=== PATIENT | male | born 1975 | race Caucasian/White ===

== ENCOUNTER 2016-12-21 22:40 | Emergency (ER) | payer OTHER ==
[2016-12-21 22:49] VITALS: RESP 16; TEMP 97.9
[2016-12-21] MEDS ORDERED: TDAP ADULT 0.5 ML INJ (BOOSTRIX) IM ONE (22:49)
--- NOTE | 2016-12-21 23:30 | EDPHY ---
H & P Time Seen by Provider: 12/21/16 22:55 HPI/ROS: CC: right forearm laceration HPI: This 41-year-old male presents to the emergency department today with a laceration to his right forearm which he sustained approximately one and a half hours prior to arrival. She states he was on a cycle roller and fell off cutting his arm on a nearby metal table. He states there is no chance there is a foreign body in the wound. He does not have decreased sensation or motor. The bleeding is well controlled. Pain 3/10. He does not have any other injuries. His tetanus status is not up-to-date. REVIEW OF SYSTEMS: Constitutional: No fever. Eyes: No discharge. Respiratory: No cough, no shortness of breath. Cardiac: No chest pain. Gastrointestinal: No abdominal pain, no vomiting. Musculoskeletal: No back pain. Skin: No rashes. Neurological: No headache. Past Medical/Surgical History: Past medical history includes hypertension exacerbated by anxiety Past surgical history includes hand surgery and adenoidectomy Family history is negative No known drug allergies Meds: Not routinely taking his antihypertensive Social History: The patient denies tobacco use. He drinks alcohol a few times a week. Occasional marijuana. Smoking Status: Never smoked Physical Exam: General Appearance: Alert and no distress. Eyes: Pupils equal and round no injection. Respiratory: Non-labored. Cardiac: Normal peripheral perfusion. Gastrointestinal: Non-distended. Musculoskeletal: Neck is supple, no JVD. Extremities have full range of motion. There is a 4 cm laceration through the dermis on the right distal lateral forearm. Skin: No rashes or lesions. DIFFERENTIAL DIAGNOSIS: After history and physical exam differential diagnosis was considered for right forearm laceration, mechanical fall. Constitutional: Initial Vital Signs Temperature (C) 97.9 F 12/21/16 22:47 Heart Rate 78 12/21/16 22:47 Respiratory Rate 16 12/21/16 22:47 Blood Pressure 183/99 H 12/21/16 22:47 O2 Sat (%) 98 12/21/16 22:47 O2 Delivery Mode Room Air Allergies/Adverse Reactions: No Known Allergies Allergy (Verified 12/21/16 22:46) Home Medications: Medication Instructions Recorded Lisinopril 12/21/16 Medical Decision Making Procedures: Procedure: Laceration repair. Verbal consent was obtained from the patient. The 4 cm laceration on the right forearm was anesthetized in the usual fashion by local anesthesia with 5 ml of 1% lidocaine with epinephrine . The wound was irrigated by the [employer] solutions architectJonny schwab, and re-cleansed by me, draped and explored to its base with a gloved finger. There were no deep structures involved. No tendon injury was identified. There was no foreign body. No debridement was necessary. The wound was repaired with #7 4.0 Prolene simple interrupted sutures. The wound repair was good and the patient tolerated the procedure well . The procedure was performed by myself. Antibiotic ointment and a sterile dressing was placed by the Jonny Rodriguez. Total Time: 15min ED Course/Re-evaluation: 41-year-old male with right forearm laceration. The wound was repaired with 7 simple interrupted sutures. Please refer to the procedure note. Patient tolerated procedure well. No antibiotics were prescribed. Wound care instructions were reviewed with the patient by both myself and nursing staff. All questions answered. Suture removal in 7-10 days or recheck sooner if any signs of infection as discussed. The patient's elevated blood pressure was also addressed and he was advised to take his prescribed medications as directed and follow up with his primary care provider. - Data Points Medications Given: Discontinued Medications Diphtheria/Tetanus/Acell Pertussis (Boostrix) 0.5 ml IM .ONCE ONE Stop: 12/21/16 22:50 Last Admin: 12/21/16 22:56 Dose: 0.5 ml Departure - Departure Disposition: Home, Routine, Self-Care Clinical Impression: Laceration of right forearm without complication Qualifiers: Encounter type: initial encounter Qualified Code(s): S51.811A - Laceration without foreign body of right forearm, initial encounter Condition: Good Instructions: Care For Your Stitches (ED), Laceration (ED) Additional Instructions: Keep the wound clean and dry. Suture removal in 7-10 days. Recheck sooner if any sign of infection as discussed or any other concerns. Referrals: MIRNA SHAIKH [Primary Care Provider] - As per Instructions
[2016-12-21 23:42] VITALS: BP 147/88; PULSE 82; O2SAT 97
== END 2016-12-21 23:40 | disposition home or self-care (01) ==
LOC: CED 22:40
PROC: 0HQDXZZ Repair Right Lower Arm Skin, External Approach (ICD-10-PCS; principal; 2016-12-21)
DX: S51.811A Laceration without foreign body of right forearm, initial encounter (principal); W26.8XXA Contact with other sharp object(s), not elsewhere classified, initial encounter; I10 Essential (primary) hypertension; Z23 Encounter for immunization